=== PATIENT | female | born 1940 | race Caucasian/White ===

== ENCOUNTER → 2017-07-18 | Outpatient (CLI) | payer MEDICARE, OTHER | LOC: LAB.O 09:09 | PROVIDERS: ATTEND Nurse Practitioner Family | DX: E78.2 Mixed hyperlipidemia (principal); E11.9 Type 2 diabetes mellitus without complications; I10 Essential (primary) hypertension ==

== ENCOUNTER 2017-07-21 15:44 | Observation (INO) | payer OTHER ==
--- NOTE | 2017-07-21 16:29 | ED.PDOC ---
History of Present Illness - General Chief Complaint: Respiratory Problem Stated Complaint: difficulty breathing Time Seen by Provider: 07/21/17 16:22 Source: patient Exam Limitations: no limitations - History of Present Illness Initial Comments: Swetha Kaminski 77 y/o female stated that she had 2 episodes of SOB which started yesterday while at sisters house then again today lasted just for a few minutes then goes away..Denies history of asthma,copd,chf.No chest pains or dizziness. Timing/Duration: 24 hours Severity: moderate Activities at Onset: activity Possible Cause: allergen exposure Improving Factors: nothing Worsening Factors: nothing Associated Symptoms: denies symptoms Respiratory Risk Factors: no cause identified Allergies/Adverse Reactions: Allergies NO KNOWN ALLERGY Allergy (Verified 07/21/17 16:40) Home Medications: Ambulatory Orders Donepezil HCl [Aricept] 10 mg PO DAILY 12/12/15 Lisinopril 10 mg PO BEDTIME 12/12/15 Metoprolol Tartrate 25 mg PO DAILY 12/12/15 Pravastatin Sodium [Pravachol] 20 mg PO BEDTIME 12/12/15 metFORMIN HCL [Glucophage] 500 mg PO BID 12/12/15 Hydrochlorothiazide 25 mg PO DAILY 07/21/17 Metoprolol Tartrate 50 mg PO BEDTIME 07/21/17 Review of Systems - Review of Systems Constitutional: States: no symptoms reported EENTM: States: see HPI, nose congestion Respiratory: States: see HPI, short of breath Cardiology: States: no symptoms reported Gastrointestinal/Abdominal: States: no symptoms reported Genitourinary: States: no symptoms reported All other Systems: Reviewed and Negative, No Change from Baseline Past Medical History (General) - Patient Medical History Hx Stroke: No Hx Congestive Heart Failure: No Hx Hypertension: Yes Hx Diabetes: Yes Hx Cancer: Yes - R breast - lumpectomy and node removal with radiation tx Hx MRSA: No Surgical History: cholecystectomy, other - righ mastectomy-2002 - Vaccination History Hx Influenza Vaccination: Yes - 2014 Hx Pneumococcal Vaccination: Yes - 2014 - Social History Hx Tobacco Use: No Hx Chewing Tobacco Use: Yes Hx Alcohol Use: No Hx Substance Use: No Hx Physical Abuse: No Hx Emotional Abuse: No - Activities of Daily Living Patient Lives Alone: No Grooming Ability: Independent Eating (Feeding) Ability: Independent Toileting Ability: Independent Family Medical History - Family History Father Living Status: Cause of : [place] Hx Family Stroke: Yes - mom Hx Family Diabetes: Yes - daughter Hx Family Cancer: Yes - breast -mom();prostate-brother Physical Exam - Physical Exam General Appearance: Alert, Comfortable, No apparent distress Eyes, Ears, Nose, Throat Exam: normal ENT inspection, other - nasal congestion Neck: non-tender, full range of motion, supple Respiratory: chest non-tender, lungs clear, no respiratory distress, wheezing - mild Cardiovascular/Chest: regular rate, rhythm, no gallop, no murmur Peripheral Pulses: radial,right: 2+, radial,left: 2+ Gastrointestinal/Abdominal: normal bowel sounds, non tender, soft, no organomegaly Neurologic: alert, oriented x 3 Skin Exam: normal color, warm/dry Progress - Progress Progress: 07/21/17 17:19 Vital Signs 07/21/17 07/21/17 15:44 15:45 Temperature 97.8 F Pulse Rate [ 96 H Left Radial] Respiratory 20 32 H Rate Blood Pressure 146/69 [Right Arm] O2 Sat by Pulse 99 Oximetry - Results/Orders Results/Orders: Vital Signs - 8 hr 07/21/17 07/21/17 07/21/17 15:44 15:45 16:52 Temperature 97.8 F Pulse Rate [ 96 H 78 Left Radial] Respiratory 20 32 H 20 Rate Blood Pressure 146/69 112/66 [Right Arm] O2 Sat by Pulse 99 96 Oximetry 07/21/17 07/21/17 07/21/17 17:52 18:56 19:24 Temperature Pulse Rate [ 73 75 80 Left Radial] Respiratory 20 22 22 Rate Blood Pressure 155/69 149/72 156/56 [Right Arm] O2 Sat by Pulse 97 99 96 Oximetry 07/21/17 16:45 EKG STAT 07/21/17 18:59 Magnesium Sulfate Premix 2Gm 2 gm Premix Bag 1 bag IVPB ONCE Laboratory Results - last 24 hr 07/21/17 07/21/17 07/21/17 17:00 17:00 17:00 WBC 11.5 H RBC 4.43 Hgb 12.9 Hct 37.2 MCV 84.0 MCH 29.1 MCHC 34.7 RDW 12.5 Plt Count 527 H MPV 6.3 L Absolute Neuts (auto) 8.80 H Absolute Lymphs (auto) 1.80 Absolute Monos (auto) 0.90 H Absolute Eos (auto) 0.00 Absolute Basos (auto) 0.10 Neutrophils % 76.5 Lymphocytes % 15.3 L Monocytes % 7.4 Eosinophils % 0.3 L Basophils % 0.5 PT 11.0 INR 0.970 PTT (SP) 28.5 D-Dimer, Quantitative 2625 H* Sodium 128 L Potassium 2.9 L Chloride 89 L Carbon Dioxide 22 Anion Gap 19.9 H BUN 15 Creatinine 1.12 BUN/Creatinine Ratio 13.4 Random Glucose 270 H Serum Osmolality 267.4 L Calcium 9.3 Magnesium 1.6 L Total Bilirubin 0.5 Direct Bilirubin 0.2 Indirect Bilirubin 0.3 AST 24 ALT 11 Alkaline Phosphatase 67 Creatine Kinase 25 L CK-MB (CK-2) 1.1 CK-MB (CK-2) % Not Reportable Troponin I < 0.02 B-Natriuretic Peptide 34.8 Serum Total Protein 7.5 Albumin 3.6 - EKG/XRAY/CT EKG: Sinus, no ST T wave changes Comments: HR-86 XRAY: chest - no acute abnormalities CT Ordered: Yes - Chest cta-no pe ;left hilar tumor Departure - Departure Clinical Impression: Hypokalemia due to loss of potassium, Hyponatremia, Hypomagnesemia, Neoplasm of hilus of left lung, History of cancer of right breast Diabetes Qualifiers: Diabetes mellitus type: type 2 Diabetes mellitus complication status: without complication Diabetes mellitus snf insulin use: without snf use Qualified Code(s): E11.9 - Type 2 diabetes mellitus without complications Dyspnea Qualifiers: Dyspnea type: unspecified Qualified Code(s): R06.00 - Dyspnea, unspecified Time of Disposition: 19:48 - D/W Trina Ren -ANP/Hospitalist Disposition: Admit Patient Condition: Fair Departure Forms: Patient Portal Self Enrollment Referrals: Bekah Sears NP [Primary Care Provider] - 1-2 Weeks Home Medications: Ambulatory Orders Donepezil HCl [Aricept] 10 mg PO DAILY 12/12/15 Lisinopril 10 mg PO BEDTIME 12/12/15 Metoprolol Tartrate 25 mg PO DAILY 12/12/15 Pravastatin Sodium [Pravachol] 20 mg PO BEDTIME 12/12/15 metFORMIN HCL [Glucophage] 500 mg PO BID 12/12/15 Hydrochlorothiazide 25 mg PO DAILY 07/21/17 Metoprolol Tartrate 50 mg PO BEDTIME 07/21/17 Decision To Admit - Decistion To Admit Decision to Admit Reason: Admit from ER Decision to Admit Date: 07/21/17 Decision to Admit Time: 19:48
--- NOTE | 2017-07-21 16:54 | RAD ---
EXAM DESCRIPTION: Chest,1 View CLINICAL HISTORY: sob COMPARISON: March TECHNIQUE: AP portable chest FINDINGS: Surgical clips are seen in the right axilla. The lungs are free of acute infiltrate. The heart is within range of normal. IMPRESSION: Unremarkable chest. Electronically signed by: Jayce Kenny MD 07/21/2017 4:53 PM CDT
[2017-07-21] MEDS ORDERED: LACTATED RINGERS 1,000 ML IVS ONE (17:53)
[2017-07-21] MEDS ORDERED: POTASSIUM CHLORIDE 20 MEQ TAB PO ONE ×2 (18:59→23:41)
[2017-07-21] MEDS ORDERED: MAGNESIUM SULFATE PREMIX 2GM 2 GM in PREMIX BAG 1 BAG IVPB ONE (18:59)
[2017-07-21] MEDS ORDERED: MAGNESIUM SULFATE PREMIX 2GM 50 ML IVPB ONE (19:15)
--- NOTE | 2017-07-21 19:25 | CT ---
EXAM: CTA Chest CLINICAL INDICATION: 77-year-old female with shortness of breath and elevated d-dimer. COMPARISON: None. EXAMINATION: CT angiography of the pulmonary arteries was performed following intravenous administration of contrast. Coronal and bilateral oblique maximum intensity projections (MIPS) were created. This exam was performed according to our departmental dose optimization program which includes use of automated exposure control, adjustment of the mA and/or kV according to patient size and/or use of iterative reconstruction technique. FINDINGS: Chest: Evaluation through the lungs reveals no focal opacity, pleural effusion or pneumothorax. Soft tissue attenuating mass is identified present at the level of the LEFT hilar region concerning for neoplasm measuring 19 x 15 mm, (series 2, image 46). There is minimal dependent basilar atelectasis and scarring. The tracheobronchial airways are patent. No significant mediastinal or axillary lymphadenopathy by CT measurement criteria. Small hiatal hernia. Top normal heart size. No pericardial effusion. Prominent mediastinal epicardial fat. RIGHT axillary surgical clips. Incidentally noted hypoattenuating lesion within the LEFT lobe thyroid gland measuring 16 mm. Best practice guidelines recommend follow-up sonography if not recently performed. Limited evaluation of the upper abdomen shows no acute intra-abdominal abnormalities. Large hypoattenuating circumscribed structure at the level of the RIGHT adrenal glands with Hounsfield units measuring less than 10 suggestive of an adrenal adenoma measuring 34 mm. Large cystic type lesion present within the LEFT lobe liver measuring up to 9.7 cm with hypoattenuating contents suggestive of a cyst. Few additional smaller cystic type lesions are noted. Please correlate with patient clinical history. The osseous structures are within normal limits. CT angiography: Diagnostic CT angiography of the pulmonary arteries without intraluminal filling defect noted to suggest pulmonary arterial embolus. IMPRESSION: 1. Diagnostic pulmonary angiography without findings to suggest pulmonary arterial embolus. 2. LEFT hilar mass as detailed above. 2017 Fleischner Society Recommendations for Single Solid Lung Nodule Follow-Up based on size (average of long- and short-axis diameters): >8 mm Low-Risk Patient: Consider CT, PET/CT or tissue sampling at 3 months >8 mm High-Risk Patient: Same as for low-risk patient 3. No specific findings are noted to suggest etiology of the patient's chest pain and shortness of breath. 4. Cystic type lesions within the LEFT lobe liver. Please correlate with patient clinical history. As clinically warranted, further evaluation 5. Incidentally noted hypoattenuating lesion within the LEFT lobe thyroid gland measuring 16 mm. Best practice guidelines recommend follow-up sonography if not recently performed. Electronically signed by: Kaitlin Vasquez MD 07/21/2017 7:23 PM CDT
--- NOTE | 2017-07-21 20:54 | HP ---
SUPERVISING PHYSICIAN: Solitario Selby MD CHIEF COMPLAINT: Shortness of breath. HISTORY OF PRESENT ILLNESS: This is a 77 year-old female patient who had a new onset of shortness of breath that started yesterday. She could not get her breath. She felt clammy and shaky. It resolved somewhat yesterday but then again today, she had another episode and she came to the Emergency Room. Her temperature was 97.8, heart rate 96, blood pressure 146/69, respiratory rate 20 , it did get as high as 32 but her 02 saturation was 95%. Laboratory in the Emergency Room showed a white count of 11.5 with hemoglobin of 12.9, hematocrit 37.2, platelet count elevated at 527,000. Chemistries showed a sodium of 128 with a potassium of 2.9, chloride 89, BUN 15, creatinine 1.12 with glucose of 270. Serum osmolality was 267.4, magnesium 1.6 and creatinine kinase 25. D-dimer 2,625. CT of the chest showed no evidence for pulmonary artery embolus but there was a left hilar mass that was 19 mm x 15 mm. It also showed a lesion on the left lobe of the thyroid as well as a right adrenal adenoma that was 34 mm and a left cystic type lesion on the liver that was 9.7 cm plus a few additional smaller cystic type lesions noted. She was given some normal saline in the Emergency Room as well as some oral potassium and some magnesium. I was called for hospital admission. PAST MEDICAL HISTORY: 1. Diabetes mellitus type 2. 2 Hypertension. 3. Acid reflux. 4. Heart problems as seen in the past by Dr. Nuno. 5. Right breast cancer in 2002. PAST SURGICAL HISTORY: 1. Cholecystectomy. 2. Right breast lumpectomy as well as lymph node resection in 2002. CURRENT MEDICATIONS: Per the EMR and awaiting verification. ALLERGIES: NO KNOWN DRUG ALLERGIES. FAMILY HISTORY: Positive for heart problems, myocardial infarctions, stroke and cancer. SOCIAL HISTORY: She smoked when she was a teenager but she has been subjected to heavy secondhand smoke her entire life. She does dip snuff approximately one -half can per day. She denies any ETOH or illicit drug use. REVIEW OF SYSTEMS: GENERAL: Negative for fever, fatigue or weight loss. HEENT: Positive for nose congestion and some mild sinus symptoms. Negative for vision changes or ear pain. CHEST: As per history of present illness. HEART: Negative for chest pain, tachycardia or palpitations. ABDOMEN: Negative for nausea, vomiting, diarrhea or constipation. GENITOURINARY: Negative for hematuria, dysuria, polyuria. ENDOCRINE: Positive for excessive thirst that started about 4 or 5 months ago. She drinks approximately 4 liters per day. NEUROLOGIC: Denies dizziness, headache or seizures. PHYSICAL EXAMINATION: VITAL SIGNS: Temperature 98.3, pulse rate 75, blood pressure 150/81, respiratory rate 18, 02 saturation 97% on room air. GENERAL: This is a 77 year-old female patient who is lying in her hospital bed. She is in no acute distress. HEENT: Normocephalic and atraumatic. Pupils are equal and reactive. Oropharynx is clear. NECK: Supple without mass. There is no jugular venous distention. CHEST: Essentially clear to auscultation bilaterally. There is equal rise and fall of the chest with inspiration and expiration. CARDIOVASCULAR: Regular rate and rhythm. ABDOMEN: Soft, it is rounded, non-tender. Bowel sounds are positive. EXTREMITIES: There is a trace of pedal edema bilaterally, otherwise no cyanosis or clubbing. NEUROLOGIC: She is awake, alert, and oriented x3. Laboratory and films are as per the history of present illness. ASSESSMENT: 1. Exacerbation of chronic obstructive pulmonary disease in a patient that has been exposed to secondhand smoke most of her life. 2. Hyponatremia secondary to excessive thirst and water toxicity with concerns for developing SIADH. 3. Hypokalemia. 4. Hypomagnesemia. 5. Left hilar lung mass per CT measuring 19 mm x 15 mm. 6. A lesion on the left lobe of her thyroid. 7. Adrenal adenoma measuring 34 mm. 8. Left cystic type lesion of the liver 9.7 cm with a few scattered cysts also noted. 9. Chronic tobacco abuse in a patient that uses snuff daily. 10. Gastroesophageal reflux disease. PLAN: We will place the patient in observation. She received some magnesium and some oral potassium in the Emergency Room. I will recheck her electrolytes in a few minutes and replace overnight if needed and we will recheck in the morning. She is also on strict fluid restrictions. I have also started Accu- Cheks with sliding scale insulin. I will draw a hemoglobin A1C, giving her breathing treatments and one small dose of steroids. I will hold off until in the morning for any kind of antibiotics. She will have to have close followup with her primary care physician, Clara Sears, for further testing. Otherwise , we will continue to monitor closely and follow as needed. Dr. Selby is the collaborating physician and available for consultation. #[id number] [facility]
[2017-07-21] MEDS ORDERED: SODIUM CHLORIDE 0.9% (FLUSH) 10 ML SYG IV PRN (22:15)
[2017-07-21] MEDS ORDERED: LEVALBUTEROL NEBS 1.25 MG/3 ML VIAL NEB PRN (22:15)
[2017-07-21] MEDS ORDERED: DEXTROSE 50% 25 GM/50 ML SYG IV PRN (22:19)
[2017-07-21] MEDS ORDERED: GLUCAGON INJ 1 MG VIAL SUBCU PRN (22:19)
[2017-07-21] MEDS ORDERED: PANTOPRAZOLE SODIUM IV 40 MG VIAL IV SCH (22:30)
[2017-07-21] MEDS ORDERED: IV SET AND CAP CHANGE INJ INJ SCH (22:30)
[2017-07-21] MEDS ORDERED: methylPREDNISolone SODIUM SUC 125 MG/2 ML VIAL IV ONE (22:35)
[2017-07-21] MEDS ORDERED: KCL 20MEQ/WATER FOR INJ 100ML 20 MEQ in PREMIX BAG 1 BAG IVPB ONE (23:48)
[2017-07-21] MEDS ORDERED: KCL 20MEQ/WATER FOR INJ 100ML 100 ML IVPB ONE (23:52)
[2017-07-21] MEDS ORDERED: SODIUM CHLORIDE 0.9% 500ML 500 ML ONE (23:53)
[2017-07-21] MEDS ORDERED: POTASSIUM CHLORIDE 20 MEQ TAB ONE (23:53)
[2017-07-21] MEDS ORDERED: SODIUM CHLORIDE 0.9% 500ML 500 ML IVS ONE (23:55)
[2017-07-22] MEDS: IPRATROPIUM BROMIDE NEBS 0.5 MG/2.5 ML VIAL NEB SCH ×3 (07:14→16:23)
[2017-07-22] MEDS ORDERED: INSULIN, REG.(HUMAN) 100 U/ML VIAL ONE (07:43)
[2017-07-22] MEDS: INSULIN LISPRO 100 UNITS/ML PEN SUBCU SCH ×4 (07:48→21:32)
[2017-07-22] MEDS: METOPROLOL TARTRATE 50 MG TAB PO SCH (10:03)
[2017-07-22] MEDS: hydroCHLOROthiazide 25 MG TAB PO SCH (10:04)
[2017-07-22] MEDS: DONEPEZIL HCL 5 MG TAB PO SCH (10:05)
[2017-07-22] MEDS: SODIUM CHLORIDE 0.9% (FLUSH) 10 ML SYG IV SCH ×2 (10:05→20:18)
[2017-07-22] MEDS ORDERED: ALPRAZolam 0.25 MG TAB PO PRN (10:08)
[2017-07-22] MEDS ORDERED: ACETAMINOPHEN 500 MG TAB PO PRN (11:31)
[2017-07-22] MEDS ORDERED: ALPRAZolam 0.25 MG TAB PO ONE (11:31)
--- NOTE | 2017-07-22 14:05 | PN ---
DATE: 07/22/17 SUPERVISING PHYSICIAN: Solitario Selby M.D. SUBJECTIVE: The patient is sitting up in her bed. Her family is at the bedside. She is very tearful. Has no complaints of shortness of breath, nausea , vomiting or diarrhea. She does complain of thirst but she feels like she is doing her fluid restrictions okay, but she is very anxious and worried about her prognosis. OBJECTIVE: VITAL SIGNS: She is afebrile, heart rate 62, blood pressure 132/76, respiratory rate 18, O2 sat is 97% on room air. RESPIRATORY: Essentially clear to auscultation bilaterally. CARDIAC: Regular rate and rhythm. GASTROINTESTINAL: Abdomen is rounded. It is soft, nondistended. Bowel sounds are positive. EXTREMITIES: Trace of pedal edema bilaterally, otherwise no cyanosis or clubbing. NEUROLOGIC: She is awake, alert and oriented times three. LABORATORY: WBCs have normalized to 8.9 with hemoglobin 12.3 and hematocrit 35.7, platelets have improved to 503, neutrophils 92.3. Sodium has improved to 131 with chloride 99. Blood sugars have run between 253 and 385. Magnesium 2.2. Urinalysis is within normal limits. All other labs and films have been reviewed via the EMR. ASSESSMENT: 1. Exacerbation of chronic obstructive pulmonary disease in a patient that has been exposed to secondhand smoke most of her life. 2. Hyponatremia that has improved secondary to excessive thirst and water toxicity with concerns for developing SIADH. 3. Hypokalemia now within normal limits. 4. Hypomagnesemia, improved, now within normal limits. 5. Left hilar lung mass per CT measuring 19 mm x 15 mm. 6. A lesion on the left lobe of her thyroid. 7. Adrenal adenoma measuring 34 mm. 8. Left cystic type lesion of the liver 9.7 cm with a few scattered cysts also noted. 9. Chronic tobacco abuse in a patient that uses snuff daily. 10. Gastroesophageal reflux disease. PLAN: We will continue present supportive care, including her fluid restrictions. I have given her some Xanax due to her anxiety. Her Metformin has been held and will need to be held until Monday morning due to the radiological values in her CTA. Her blood sugars have been elevated, so I will start her on 10 units of Levemir tonight. Her home medications have been restarted. We will monitor her lab closely. Otherwise we will plan for discharge tomorrow and we will follow the patient as needed. Dr. Selby is the collaborating physician available for consultation. #[id number] [facility]
[2017-07-22] MEDS: PANTOPRAZOLE SODIUM IV 40 MG VIAL IV SCH ×2 (20:17→20:53)
[2017-07-22] MEDS ORDERED: LISINOPRIL 10 MG TAB PO SCH (21:00)
[2017-07-22] MEDS ORDERED: INSULIN DETEMIR 100 UNITS/ML PEN SUBCU SCH (21:00)
[2017-07-22] MEDS ORDERED: PRAVASTATIN SODIUM 20 MG TAB PO SCH (21:00)
[2017-07-22] MEDS ORDERED: METOPROLOL TARTRATE 50 MG TAB PO SCH (21:00)
[2017-07-23] MEDS ORDERED: PANTOPRAZOLE SODIUM TAB 40 MG PO SCH (06:30)
[2017-07-23 06:34] VITALS: TEMP 98.1
[2017-07-23] MEDS: INSULIN LISPRO 100 UNITS/ML PEN SUBCU SCH (07:37)
[2017-07-23] MEDS: DONEPEZIL HCL 5 MG TAB PO SCH (08:00)
[2017-07-23] MEDS: hydroCHLOROthiazide 25 MG TAB PO SCH (08:00)
[2017-07-23] MEDS: METOPROLOL TARTRATE 50 MG TAB PO SCH (08:01)
[2017-07-23] MEDS: SODIUM CHLORIDE 0.9% (FLUSH) 10 ML SYG IV SCH (08:04)
[2017-07-23] MEDS ORDERED: ALBUTEROL INHALER 64 PUFF/8GM INH SCH ×2 (09:30→21:00)
[2017-07-23] MEDS ORDERED: CITALOPRAM HBR 20 MG TAB PO ONE (09:41)
[2017-07-23 10:16] VITALS: O2SAT 95
[2017-07-23 11:50] VITALS: BP 118/76
--- NOTE | 2017-07-24 08:08 | DS ---
SUPERVISING PHYSICIAN: Solitario Selby MD DISCHARGE DIAGNOSIS: 1. Exacerbation of chronic obstructive pulmonary disease in a patient that has been exposed to secondhand smoke most of her life. 2. Hyponatremia that has improved secondary to excessive thirst and water toxicity with concerns for developing SIADH. 3. Hypokalemia, now within normal limits. 4. Hypomagnesemia, now within normal limits. 5. Left hilar lung mass per CT measuring 19 mm x 15 mm. 6. A lesion on the left lobe of her thyroid. 7. Adrenal adenoma measuring 34 mm. 8. Left cystic type lesion of the liver 9.7 cm with a few scattered cysts also noted. 9. Chronic tobacco abuse in a patient that uses snuff daily. 10. Gastroesophageal reflux disease. HISTORY OF PRESENT ILLNESS: This is a 77-year-old female patient who had a new onset of shortness of breath that started the day prior to her admission. She had a very difficult time getting her breath. She also felt clammy and shaky. It resolved the day prior to admission, but on the day of admission she had another episode and she came to the Emergency Room. Her vital signs were basically within normal limits, but her respiratory rate did get as high as 32. Laboratory in the Emergency Room showed a white count of 11.5 with hemoglobin of 12.9, hematocrit 37.2, platelet count elevated at 527,000. Chemistries showed a sodium of 128 with a potassium of 2.9, chloride 89, BUN 15, creatinine 1.12 with glucose of 270. Magnesium 1.6 and creatinine kinase 25. D-dimer 2, 625. CTA of the chest showed no evidence for pulmonary artery embolus but there was a left hilar mass that was 19 mm x 15 mm. It also showed a lesion on the left lobe of the thyroid as well as a right adrenal adenoma that was 34 mm and a left cystic type lesion on the liver that was 9.7 cm plus a few additional smaller cystic type lesions noted. She was given some normal saline in the Emergency Room as well as some oral potassium and some IV magnesium. I was called for hospital admission. HOSPITAL COURSE: The patient was placed in observation and put on fluid restrictions. Her shortness of breath improved with breathing treatments and one dose of IV steroids. She did have several episodes of anxiety and was given Xanax with improved symptoms. She was started on Celexa 10 mg daily for anxiety. Her magnesium and potassium were replaced. Her sodium trended up to 136 today with potassium 3.6 today. Her magnesium is 1.8. Urinalysis was basically within normal limits. It was found that her blood sugars were quite elevated in the 300s and hemoglobin A1c was 11.2. Her metformin was held due to the CTA and she was put on 10 units of Levemir at night. Blood sugar this morning was 159. Vital signs have remained stable. She will be discharged home in good condition. DISCHARGE PLAN: The patient will be discharged home in stable condition. She has been given a disc from Radiology that she is to take to Bekah Sears on followup appointment. She is to call Bekah Sears's office this week at [facility] to get a followup appointment within the next week. She will go home with [facility]. Her CMP, CBC and magnesium should be drawn on the day prior to her appointment with Bekah Sears. She will also continue on fluid restrictions of 1200 mL in a 24 hour period, plus she can have a morning cup of coffee. I have also sent her home on a prescription of Xanax as well as Celexa. She will be given her ProAir inhaler for shortness of breath, coughing or wheezing. I have also given her a Glucometer to check her fasting AM blood sugars and she is to record those results and give to Bekah Sears at her appointment. She will need close followup with social work lecturer/ oncologist given the results of her CT exam. The patient would like to have a social work lecturer/oncologist that comes to [place], such as Dr. Kowalski or Dr. Mohan. She is to return to the hospital or call Bekah Sears at [facility] for any problems or complications. DISCHARGE MEDICATIONS: 1. Pravastatin. 2. Aricept. 3. Metformin. 4. Metoprolol tartrate. 5. Lisinopril. 6. Hydrochlorothiazide. 7. ProAir inhaler. 8. Xanax. 9. Citalopram. 10. Levemir insulin 10 units subcutaneously at night. Dr. Selby is the collaborating physician and available for consultation. #[id number] [facility]
== END 2017-07-23 11:10 | disposition home health service (06) ==
LOC: ER 15:44 → MS 20:52
PROVIDERS: ADMIT Nurse Practitioner Acute Care; ATTEND Nurse Practitioner Acute Care
DX: J44.1 Chronic obstructive pulmonary disease with (acute) exacerbation (principal); E87.1 Hypo-osmolality and hyponatremia; E87.6 Hypokalemia; E83.42 Hypomagnesemia; R91.8 Other nonspecific abnormal finding of lung field; E07.9 Disorder of thyroid, unspecified; D35.01 Benign neoplasm of right adrenal gland; K76.89 Other specified diseases of liver; F17.290 Nicotine dependence, other tobacco product, uncomplicated; K21.9 Gastro-esophageal reflux disease without esophagitis; E11.9 Type 2 diabetes mellitus without complications; I10 Essential (primary) hypertension; Z79.4 Long term (current) use of insulin; Z79.899 Other long term (current) drug therapy; Z85.3 Personal history of malignant neoplasm of breast
CPT/HCPCS: 36415 ×5; 36416 ×5; 71045; 71275; 80048 ×3; 80053; 80076; 81001; 82550; 82553; 82948 ×5; 83036; 83735 ×3; 83880; 84484; 85025 ×3; 85379; 85610; 85730; 93005; 94640; 94664; 94760 ×8; 96361; 96365; 96372 ×2; 96375; 99284; G0378; J1815 ×2; J2930; J3475; J3480; J7040; J7120; J7644

== ENCOUNTER → 2017-07-27 | Outpatient (CLI) | payer OTHER ==
--- NOTE | 2017-07-27 12:32 | US ---
EXAM DESCRIPTION: Soft Tissue,Head/Neck: ULTRASOUND. CLINICAL HISTORY: R22.1. Recent IV access in the right lateral neck. Patient complains of swelling and increasing tenderness. COMPARISON: None Available. TECHNIQUE: Transcutaneous scanning: Two-dimensional and Doppler modes. 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 This is palpable on the skin. No color flow or venous waveforms. The vein is not compressible. Venous flow where this vein joins the right internal jugular vein. Doppler arterial flow in the right internal carotid and normal venous flow and the right internal jugular vein.. No soft tissue mass, discrete cyst. No abnormal Doppler vascularity. 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 No thrombosis in the right internal jugular vein. No hematoma. CRITICAL COMMUNICATION: The critical value was discussed directly by phone with TONYA Sauceda, at approximately 1220, on 07/27/2017. Electronically signed by: Francisco Javier Do MD 07/27/2017 12:30 PM CDT
== END ==
LOC: US 11:25
PROVIDERS: ATTEND Nurse Practitioner Family
DX: R22.1 Localized swelling, mass and lump, neck (principal)

== ENCOUNTER → 2018-04-06 | Outpatient (CLI) | payer OTHER | LOC: LAB.O 09:23 | PROVIDERS: ATTEND Nurse Practitioner Family | DX: E11.9 Type 2 diabetes mellitus without complications (principal); I10 Essential (primary) hypertension; E78.2 Mixed hyperlipidemia ==

== ENCOUNTER 2018-05-01 20:07 | Emergency (ER) | payer OTHER ==
[2018-05-01 20:27] VITALS: O2SAT 99
--- NOTE | 2018-05-01 20:50 | ED.PDOC ---
History of Present Illness - General Chief Complaint: Back Pain or Injury Stated Complaint: left side muscle spasms Time Seen by Provider: 05/01/18 20:48 Source: patient Exam Limitations: no limitations - History of Present Illness Initial Comments: Swetha Kaminski 78 y/o female stated that she had sharp left sided mid back pain which had been constant since this afternoon.No hematuria,no N/V/D,regular BM,no blood in urine. Timing/Duration: 7-24 hours Quality/Severity: sharpness Back Pain Location: lumbar spine Back Pain Radiation: other - NONE Method of Injury/Prior Injury: other - NONE Improving Factors: rest Worsening Factors: movement Associated Symptoms: muscle spasms Allergies/Adverse Reactions: Allergies NO KNOWN ALLERGY Allergy (Verified 07/21/17 16:40) Home Medications: Ambulatory Orders Donepezil HCl [Aricept] 10 mg PO DAILY 12/12/15 Lisinopril 10 mg PO BEDTIME 12/12/15 Metoprolol Tartrate 25 mg PO DAILY 12/12/15 Pravastatin Sodium [Pravachol] 20 mg PO BEDTIME 12/12/15 metFORMIN HCL [Glucophage] 500 mg PO BID 12/12/15 Hydrochlorothiazide 25 mg PO DAILY 07/21/17 Metoprolol Tartrate 50 mg PO BEDTIME 07/21/17 ALPRAZolam [Xanax] 0.25 mg PO Q6H PRN #30 tab 07/23/17 Albuterol Inhaler [Ventolin Hfa Inhaler] 2 puff INH BID inh 07/23/17 Citalopram Hydrobromide [Celexa] 10 mg PO DAILY #30 tab 07/23/17 Acetaminophen W/ Codeine [Tylenol W/ CODEINE #3] 1 ea PO Q6HRS PRN #14 05/01/18 Baclofen 20 mg PO BID #14 tab 05/01/18 Insulin Detemir [Levemir Pen] 18 units SUBCU BEDTIME 05/01/18 Nitrofurantoin Monohydrate Mac [Macrobid] 100 mg PO BID 5 Days #10 capsule 05/01/18 Potassium Chloride [Micro-K] 10 meq PO DAILY 05/01/18 Review of Systems - Review of Systems Constitutional: States: no symptoms reported EENTM: States: no symptoms reported Cardiology: States: no symptoms reported Gastrointestinal/Abdominal: States: no symptoms reported Genitourinary: States: no symptoms reported Musculoskeletal: States: see HPI Skin: States: no symptoms reported Neurological: States: no symptoms reported Past Medical History (General) - Patient Medical History Hx Seizures: No Hx Stroke: No Hx Dementia: Yes Hx Asthma: No Hx of COPD: Yes Hx Congestive Heart Failure: Yes Hx Pacemaker: No Hx Hypertension: Yes Hx Diabetes: Yes Hx Cancer: Yes - rt breast w/ biopsy Hx MRSA: No Surgical History: cholecystectomy, other - lumpectomy with LN dissection - Vaccination History Hx Influenza Vaccination: Yes Hx Pneumococcal Vaccination: Yes - 2015 - Social History Hx Tobacco Use: No Hx Chewing Tobacco Use: Yes Hx Alcohol Use: No Hx Substance Use: No Hx Physical Abuse: No Hx Emotional Abuse: No - Triage Comment ED Triage Comment: Describes spasms to across back since this afternoon. States been active all day Family Medical History - Family History Father Living Status: Age at (years of age): 77 Cause of : OR Hx Family Asthma: Yes Hx Family Congestive Heart Failure: No Hx Family Hypertension: No Hx Family Stroke: No - mom Hx Cardiac Disease: Yes Hx Family Diabetes: Yes - daughter Hx Family Cancer: Yes - breast -mom();prostate-brother;dad-kidney Mother Living Status: Age at (years of age): 89 Hx Family Asthma: No Hx Family Congestive Heart Failure: Yes Hx Family Hypertension: Yes Hx Family Stroke: Yes Hx Cardiac Disease: Yes Hx Family Diabetes: No Hx Family Cancer: Yes Physical Exam - Physical Exam General Appearance: Alert, Comfortable, No apparent distress Eyes, Ears, Nose, Throat Exam: normal ENT inspection Neck Exam: non-tender, full range of motion, normal alignment, normal inspection Cardiovascular/Respiratory: regular rate, rhythm, no M/R/G, normal peripheral pulses Peripheral Pulses: radial,right: 2+, radial,left: 2+ Gastrointestinal/Abdominal: normal bowel sounds, non tender, soft Back Exam: no vertebral tenderness, CVA tenderness (L) Extremity Exam: normal range of motion, non-tender, no pedal edema Neurologic: no motor/sensory deficits, alert, oriented x 3, other - DTR-2 + bilaterally patellar reflex;SLR test negative bilaterally Progress - Progress Progress: 05/01/18 20:55 Vital Signs - 8 hr 05/01/18 20:24 Temperature 96.8 F L Pulse Rate [ 60 Right] Respiratory 18 Rate Blood Pressure 180/61 [Left Arm] O2 Sat by Pulse 99 Oximetry - Results/Orders Results/Orders: 05/01/18 20:31 URINE CULTURE W/COLONY COUNT Stat 05/01/18 20:50 IV Care:Saline Lock per Protoc QSHIFT 05/01/18 21:12 URINALYSIS Stat Laboratory Results - last 24 hr 05/01/18 05/01/18 20:31 20:50 WBC 10.4 RBC 4.21 Hgb 12.3 Hct 36.9 MCV 87.5 MCH 29.3 MCHC 33.5 RDW 13.3 Plt Count 385 MPV 6.6 L Absolute Neuts (auto) 7.60 H Absolute Lymphs (auto) 1.90 Absolute Monos (auto) 0.80 Absolute Eos (auto) 0.10 Absolute Basos (auto) 0.10 Neutrophils % 72.7 Lymphocytes % 17.9 L Monocytes % 7.9 Eosinophils % 0.6 L Basophils % 0.9 PT 9.8 INR 0.98 PTT (SP) 24.0 Sodium 134 L Potassium 4.1 Chloride 96 L Carbon Dioxide 27 Anion Gap 15.1 BUN 23 H Creatinine 1.03 BUN/Creatinine Ratio 22.3 H Random Glucose 145 H Serum Osmolality 274.5 L Calcium 10.0 Magnesium 2.1 Total Bilirubin 0.6 Direct Bilirubin 0.3 H Indirect Bilirubin 0.3 AST 23 ALT 10 Alkaline Phosphatase 55 Creatine Kinase 120 CK-MB (CK-2) 2.8 CK-MB (CK-2) % Not Reportable Troponin I < 0.02 Serum Total Protein 7.2 Albumin 3.9 Urine Color Yellow Urine Appearance Sl cloudy Urine pH 7.5 Ur Specific [place] 1.020 Urine Protein Negative Urine Glucose (UA) Negative Urine Ketones Negative Urine Blood Negative Urine Nitrite Negative Urine Bilirubin Negative Urine Urobilinogen 0.2 Ur Leukocyte Esterase Moderate H Urine RBC 1-3 Urine WBC 5-10 H Ur Epithelial Cells 5-10 Amorphous Sediment 2+ Urine Bacteria 1+ - EKG/XRAY/CT CT Ordered: Yes - abd/p-no acute abdominal findings Departure - Departure Clinical Impression: Acute abdominal pain in left flank Urinary tract infection Qualifiers: Urinary tract infection type: site unspecified Hematuria presence: without hematuria Qualified Code(s): N39.0 - Urinary tract infection, site not specified Time of Disposition: 22:18 Disposition: Discharge to Home or Self Care Condition: Fair Departure Forms: ED Discharge - Pt. Copy, Patient Portal Self Enrollment Instructions: DI for Low Back Pain Referrals: Bekah Sears NP [Primary Care Provider] - 1-2 Weeks Prescriptions: Acetaminophen W/ Codeine [Tylenol W/ CODEINE #3] 1 ea PO Q6HRS PRN #14 PRN Reason: Pain Baclofen 20 mg PO BID #14 tab Nitrofurantoin Monohydrate Mac [Macrobid] 100 mg PO BID 5 Days #10 capsule Home Medications: Ambulatory Orders Donepezil HCl [Aricept] 10 mg PO DAILY 12/12/15 Lisinopril 10 mg PO BEDTIME 12/12/15 Metoprolol Tartrate 25 mg PO DAILY 12/12/15 Pravastatin Sodium [Pravachol] 20 mg PO BEDTIME 12/12/15 metFORMIN HCL [Glucophage] 500 mg PO BID 12/12/15 Hydrochlorothiazide 25 mg PO DAILY 07/21/17 Metoprolol Tartrate 50 mg PO BEDTIME 07/21/17 ALPRAZolam [Xanax] 0.25 mg PO Q6H PRN #30 tab 07/23/17 Albuterol Inhaler [Ventolin Hfa Inhaler] 2 puff INH BID inh 07/23/17 Citalopram Hydrobromide [Celexa] 10 mg PO DAILY #30 tab 07/23/17 Acetaminophen W/ Codeine [Tylenol W/ CODEINE #3] 1 ea PO Q6HRS PRN #14 05/01/18 Baclofen 20 mg PO BID #14 tab 05/01/18 Insulin Detemir [Levemir Pen] 18 units SUBCU BEDTIME 05/01/18 Nitrofurantoin Monohydrate Mac [Macrobid] 100 mg PO BID 5 Days #10 capsule 05/01/18 Potassium Chloride [Micro-K] 10 meq PO DAILY 05/01/18 Additional Instructions: Follow up with your primary Md 02 May 2018 for recheck as needed;return to ER as needed
--- NOTE | 2018-05-01 21:47 | CT ---
EXAM DESCRIPTION: Abdoment/Pelvis w/o Contrast CLINICAL HISTORY: 78 years Female, left flank pain Comparison: Correlation with CT pelvis 01/29/2016 TECHNIQUE: Contiguous axial images of the abdomen and pelvis were obtained without IV or oral contrast followed by reconstruction images. This exam was performed according to our departmental dose-optimization program, which includes automated exposure control, adjustment of the mA and/or kV according to patient size and/or use of iterative reconstruction technique. FINDINGS: Lung bases: Lung bases are clear. Liver: Two cystic attenuation hepatic lesions, likely representing simple cysts largest in the left hepatic lobe measuring 6.5 cm. Additional hypoattenuation adjacent to the falciform ligament, too small to characterize but possibly representing additional cyst. Multiple surgical clips are seen in the right inferior perihepatic region. Gallbladder/Bile ducts: Gallbladder not identified. Mildly prominent extrahepatic bile duct measuring up to 1.1 cm, likely related to absent gallbladder. Spleen: Within normal limits Pancreas: Incompletely characterized 1.9 cm hypodense lesion in the pancreatic body (series 2 image 40) Adrenal glands: Right adrenal gland nodule measuring 2.5 cm with attenuation values consistent with a lipid rich adenoma. Kidneys/Bladder: No renal stone. No hydronephrosis. No perinephric stranding. Contracted bladder is poorly evaluated. GI tract: Oval density in the stomach measuring 1.4 cm, likely representing recently ingested material. No bowel obstruction. Scattered descending colon/sigmoid colon diverticula without adjacent findings to suggest active inflammatory process. The appendix is within normal limits. Uterus/adnexa: Retroverted uterus. No suspicious adnexal lesion. Vascular structures: Not well evaluated in this unenhanced study. Nonaneurysmal abdominal aorta. Diffuse aortic vascular calcifications. Free fluid: No free fluid. Lymph nodes: No radiographically enlarged lymph nodes Soft tissues: Small fat-containing umbilical hernia. Bones: No acute osseous finding. Mild thoracolumbar spine degenerative changes. IMPRESSION: 1. No acute abdominal or pelvic finding in this unenhanced study. 2. Colonic diverticulosis 3.Incidental and incompletely characterize hypodense pancreatic lesion (1.9 cm). Additional imaging with pancreatic protocol CT or MRI can be pursued as clinically warranted. 4. Hepatic cysts 5. Right adrenal lipid rich adenoma (2.5 cm) Electronically signed by: Delaney Rivas MD 05/01/2018 9:45 PM [employer] ROLLER
[2018-05-01] MEDS ORDERED: HYDROcodone 7.5MG/APAP 325MG 1 EA TAB PO ONE (22:19)
[2018-05-01] MEDS ORDERED: KETOROLAC TROMETHAMINE INJ 30 MG/ML VIAL IM ONE (22:19)
[2018-05-01] MEDS ORDERED: HYDROCOD/APAP 7.5/325 (ER DISP) #3 TAB PO ONE (22:19)
[2018-05-01] MEDS ORDERED: ORPHENADRINE CITRATE 30 MG/ML AMP IM ONE (22:19)
[2018-05-01] MEDS ORDERED: NITROFURANTOIN MONOHYDRATE MAC 100 MG CAP PO ONE (22:21)
[2018-05-01 22:58] VITALS: BP 163/64; TEMP 97.2
== END 2018-05-01 22:57 | disposition home or self-care (01) ==
LOC: ER 20:07
DX: N39.0 Urinary tract infection, site not specified (principal); R10.9 Unspecified abdominal pain; M54.5 Low back pain; F03.90 Unspecified dementia, unspecified severity, without behavioral disturbance, psychotic disturbance, mood disturbance, and anxiety; J44.9 Chronic obstructive pulmonary disease, unspecified; I11.0 Hypertensive heart disease with heart failure; I50.9 Heart failure, unspecified; E11.9 Type 2 diabetes mellitus without complications; Z85.3 Personal history of malignant neoplasm of breast; Z90.49 Acquired absence of other specified parts of digestive tract; Z79.4 Long term (current) use of insulin; Z79.899 Other long term (current) drug therapy; Z87.891 Personal history of nicotine dependence
CPT/HCPCS: 74176; 80048; 80076; 81001; 82550; 82553; 84484; 85025; 85610; 85730; 87086; J1885; J2360

== ENCOUNTER → 2018-05-24 | Outpatient (CLI) | payer OTHER | LOC: YCFC.O 09:15 | PROVIDERS: ATTEND Nurse Practitioner Family | DX: E87.6 Hypokalemia (principal) ==

== ENCOUNTER → 2018-07-31 | Outpatient (CLI) | payer OTHER ==
--- NOTE | 2018-08-01 08:57 | RAD ---
EXAM DESCRIPTION: Cervical Spine,3 Views CLINICAL HISTORY: CERVICALGIA COMPARISON: None Available. TECHNIQUE: AP/lateral/ open-mouth odontoid FINDINGS: Anatomic alignment of cervical vertebrae is seen on lateral view with visualization of C1-C7. Advanced degenerative change at the atlantodens interval with sclerosis and narrowing. Prominent anterior spurring at C2-3, C3-4, C4-5 and especially C5-6 with large anterior bridging osteophyte suggesting DISH. This may be a cause of dysphagia. Correlate with clinical symptoms. No fracture or subluxation. No prevertebral soft tissue swelling. Normal craniocervical alignment. There is preservation of the spinal laminar line. No spinous process avulsion. Odontoid base appears intact. Normal alignment of the lateral margins of C1 and C2. AP view shows normal spinous process alignment with normal alignment of the lateral masses. Lung apices are clear. Advanced degenerative changes of the mid and lower cervical facet joints. IMPRESSION: Degenerative changes as described. Negative for fracture or posttraumatic subluxation. Electronically signed by: Anthony Cedillo MD 08/01/2018 8:54 AM CDT
== END ==
LOC: LAB.O 12:40
PROVIDERS: ATTEND Nurse Practitioner Family
DX: M54.2 Cervicalgia (principal); E11.9 Type 2 diabetes mellitus without complications

== ENCOUNTER → 2018-12-19 | Outpatient (CLI) | payer OTHER ==
--- NOTE | 2018-12-20 09:30 | NM ---
EXAM DESCRIPTION: Bone Scan, Whole Body: Nuclear Medicine CLINICAL HISTORY: 78 years Female DEGENERATIVE JOINT DISEASE INVOLVING MULTI JOINTS COMPARISON: Cervical spine radiographs 07/31/2018. TECHNIQUE: Patient injected with 26.1 mCi of technetium 99M MDP IV. Delayed gamma camera images from various planes were obtained 3 hr after injection. FINDINGS: Photopenic hardware visible in the right knee. Activity in the femoral condyles, patella, and tibial plateaus abutting the hardware but not specific for infection or loosening. Activity in the bilateral ankles, bilateral wrists, bilateral shoulders, bilateral sternoclavicular joints most likely related to arthrosis/arthritis. Activity in the mid cervical spine to the right of midline consistent with facet arthrosis seen at C2-3 C3-4 and C4-5 levels on prior cervical spine radiographs. No compression fractures. There is also minimal radiotracer uptake at L4-L5 levels of the lumbar spine. Mild levoscoliosis. Focal activity in the upper thoracic spine is most likely due to spondylosis or facet arthrosis. No abnormal breath also activity in the long bones or flat bones. Normal soft tissue activity in the kidneys, urinary bladder, and sinuses. IMPRESSION: Radionuclide bone scan showing multiple joint involvement with arthrosis/arthritis including bilateral ankles, left knee, bilateral wrists, bilateral shoulders. Also cervical spine and upper thoracic spine and lower lumbar spine. Nonspecific activity around right knee arthroplasty. No abnormal activity in the long bones or flat bones or skull. Electronically signed by: Francisco Javier Do MD 12/20/2018 9:28 AM CDT
== END ==
LOC: NM 08:00
PROVIDERS: ATTEND Nurse Practitioner Family
DX: M15.9 Polyosteoarthritis, unspecified (principal); Z96.651 Presence of right artificial knee joint

== ENCOUNTER 2018-12-22 16:12 | Emergency (ER) | payer OTHER ==
[2018-12-22] MEDS ORDERED: HYDROcodone 7.5MG/APAP 325MG 1 EA TAB PO ONE (16:34)
[2018-12-22] MEDS ORDERED: ALUM & MAG HYDROX-SIMETHICONE 30 ML, LIDOCAINE VISCOUS 2% 15 ML PO ONE ×2 (16:40)
[2018-12-22] MEDS ORDERED: LIDOCAINE HCL 2% (MOUTH-THROAT) 15 ML UD ONE (17:08)
[2018-12-22] MEDS ORDERED: ALUM & MAG HYDROX-SIMETHICONE 30 ML UD ONE (17:08)
[2018-12-22] MEDS: ASPIRIN TABLET 325 MG TAB PO ONE ×2 (17:13→17:22)
[2018-12-22] MEDS ORDERED: POTASSIUM CHLORIDE ELIXIR 20 MEQ/15 ML UD PO ONE (17:14)
--- NOTE | 2018-12-22 17:34 | RAD ---
EXAM:Chest,2 Views CLINICAL INDICATION: Atypical chest pain COMPARISON: 07/21/2017 FINDINGS:Two views of the chest were obtained. The heart size is normal. The pulmonary vascularity is unremarkable. The lungs are clear. There is no consolidation, infiltrate, pleural effusion, or pneumothorax. IMPRESSION: No evidence of active pulmonary disease. Electronically signed by: Adrien Self MD 12/22/2018 5:33 PM CDT
[2018-12-22] MEDS ORDERED: predniSONE 20 MG TAB PO ONE (17:53)
[2018-12-22] MEDS ORDERED: ONDANSETRON ODT 8 MG TAB SL ONE (17:57)
--- NOTE | 2018-12-22 18:51 | ED.PDOC ---
History of Present Illness - General Chief Complaint: Cardiovascular Problem Stated Complaint: chest pain, nausea Time Seen by Provider: 12/22/18 16:21 Source: family Exam Limitations: no limitations - History of Present Illness Initial Comments: the patient is a 78-year-old female presenting to the emergency room secondary to intermittent very brief spasms of chest pain just at the right edge of the sternum. This has been happening since this morning. It is worse with twisting or turning or taking a deep breath. It is not worse with walking or aerobic activity. No shortness of breath. No productive cough. No pressure. No syncope or near syncope. No palpitations.pain is at least mostly reproducible with palpation. Timing/Duration: other - 10 hours Severity: moderate Improving Factors: nothing Worsening Factors: movement Associated Symptoms: denies symptoms Allergies/Adverse Reactions: Allergies NO KNOWN ALLERGY Allergy (Verified 07/21/17 16:40) Home Medications: Ambulatory Orders Donepezil HCl [Aricept] 10 mg PO DAILY 12/12/15 Lisinopril 10 mg PO BEDTIME 12/12/15 Metoprolol Tartrate 25 mg PO DAILY 12/12/15 Pravastatin Sodium [Pravachol] 20 mg PO BEDTIME 12/12/15 metFORMIN HCL [Glucophage] 500 mg PO BID 12/12/15 Hydrochlorothiazide 25 mg PO DAILY 07/21/17 Metoprolol Tartrate 50 mg PO BEDTIME 07/21/17 ALPRAZolam [Xanax] 0.25 mg PO Q6H PRN #30 tab 07/23/17 Albuterol Inhaler [Ventolin Hfa Inhaler] 2 puff INH BID inh 07/23/17 Citalopram Hydrobromide [Celexa] 10 mg PO DAILY #30 tab 07/23/17 Acetaminophen W/ Codeine [Tylenol W/ CODEINE #3] 1 ea PO Q6HRS PRN #14 05/01/18 Baclofen 20 mg PO BID #14 tab 05/01/18 Insulin Detemir [Levemir Pen] 18 units SUBCU BEDTIME 05/01/18 Nitrofurantoin Monohydrate Mac [Macrobid] 100 mg PO BID 5 Days #10 capsule 05/01/18 Potassium Chloride [Micro-K] 10 meq PO DAILY 05/01/18 Tramadol HCl 50 mg PO Q8HR PRN #10 tab 12/22/18 predniSONE [Prednisone] 20 mg PO DAILY #3 tab 12/22/18 Review of Systems - Review of Systems Constitutional: States: no symptoms reported EENTM: States: no symptoms reported Respiratory: States: no symptoms reported Cardiology: States: chest pain Gastrointestinal/Abdominal: States: no symptoms reported Genitourinary: States: no symptoms reported Musculoskeletal: States: no symptoms reported Skin: States: no symptoms reported Neurological: States: no symptoms reported All other Systems: No Change from Baseline Past Medical History (General) - Patient Medical History Hx Seizures: No Hx Stroke: No Hx Dementia: Yes Hx Asthma: No Hx of COPD: Yes Hx Congestive Heart Failure: Yes Hx Pacemaker: No Hx Hypertension: Yes Hx Diabetes: Yes Hx Cancer: Yes - rt breast w/ biopsy Hx MRSA: No - Vaccination History Hx Influenza Vaccination: Yes Hx Pneumococcal Vaccination: Yes - 2015 - Social History Hx Tobacco Use: No Hx Chewing Tobacco Use: Yes Hx Alcohol Use: No Hx Substance Use: No Hx Physical Abuse: No Hx Emotional Abuse: No Family Medical History - Family History Father Living Status: Age at (years of age): 77 Cause of : DC Hx Family Asthma: Yes Hx Family Congestive Heart Failure: No Hx Family Hypertension: No Hx Family Stroke: No - mom Hx Cardiac Disease: Yes Hx Family Diabetes: Yes - daughter Hx Family Cancer: Yes - breast -mom();prostate-brother;dad-kidney Mother Living Status: Age at (years of age): 89 Hx Family Asthma: No Hx Family Congestive Heart Failure: Yes Hx Family Hypertension: Yes Hx Family Stroke: Yes Hx Cardiac Disease: Yes Hx Family Diabetes: No Hx Family Cancer: Yes Physical Exam - Physical Exam General Appearance: Alert, Anxious, No apparent distress Eye Exam: bilateral normal Ears, Nose, Throat: hearing grossly normal, normal ENT inspection Neck: full range of motion, supple Respiratory: lungs clear, normal breath sounds, no respiratory distress, no accessory muscle use, other - see history of present illness Cardiovascular/Chest: normal peripheral pulses, regular rate, rhythm, no edema Peripheral Pulses: radial,right: 2+, radial,left: 2+ Gastrointestinal/Abdominal: non tender, soft Rectal Exam: deferred Back Exam: normal inspection Extremity: normal range of motion, non-tender, normal inspection, no pedal edema, normal capillary refill Neurologic: ornament stitcher II-XII nml as tested, alert, normal mood/affect, oriented x 3 Progress - Progress Progress: 12/22/18 18:52 the patient's a 78-year-old female presenting with atypical chest pain is most consistent with costochondritis. The patient is going be placed on prednisone 20 mg a day for the next 3 days. She does need to watch her blood sugars. She does need to do stretching. Topical heat may also prove beneficial. Follow up with primary care doctor later this coming week. ER warnings were given for any significant worsening. - Results/Orders Results/Orders: Laboratory Tests 12/22/18 12/22/18 12/22/18 17:01 17:01 17:01 WBC 11.1 H RBC 4.35 Hgb 13.1 Hct 37.9 MCV 87.3 MCH 30.2 MCHC 34.6 RDW 13.0 Plt Count 357 MPV 6.6 L Absolute Neuts (auto) 7.60 H Absolute Lymphs (auto) 2.50 Absolute Monos (auto) 0.70 Absolute Eos (auto) 0.10 Absolute Basos (auto) 0.10 Neutrophils % 68.9 Lymphocytes % 22.6 Monocytes % 6.7 Eosinophils % 0.8 L Basophils % 1.0 PT 10.1 INR 1.01 PTT (SP) 24.4 Sodium 135 Potassium 3.3 L Chloride 100 L Carbon Dioxide 22 Anion Gap 16.3 BUN 19 H Creatinine 0.96 BUN/Creatinine Ratio 19.8 Random Glucose 149 H Serum Osmolality 275.2 Calcium 9.5 Magnesium 1.7 L Total Bilirubin 0.5 AST 17 ALT 10 Alkaline Phosphatase 48 Creatine Kinase 42 CK-MB (CK-2) 1.4 CK-MB (CK-2) % Not Reportable Troponin I < 0.02 B-Natriuretic Peptide 23.5 Serum Total Protein 7.1 Albumin 3.9 Globulin 3.2 Albumin/Globulin Ratio 1.2 Amylase 50 Lipase 37 Urine Color Urine Appearance Urine pH Ur Specific [place] Urine Protein Urine Glucose (UA) Urine Ketones Urine Blood Urine Nitrite Urine Bilirubin Urine Urobilinogen Ur Leukocyte Esterase Urine RBC Urine WBC Ur Epithelial Cells Urine Bacteria Urine Mucus 12/22/18 17:31 WBC RBC Hgb Hct MCV MCH MCHC RDW Plt Count MPV Absolute Neuts (auto) Absolute Lymphs (auto) Absolute Monos (auto) Absolute Eos (auto) Absolute Basos (auto) Neutrophils % Lymphocytes % Monocytes % Eosinophils % Basophils % PT INR PTT (SP) Sodium Potassium Chloride Carbon Dioxide Anion Gap BUN Creatinine BUN/Creatinine Ratio Random Glucose Serum Osmolality Calcium Magnesium Total Bilirubin AST ALT Alkaline Phosphatase Creatine Kinase CK-MB (CK-2) CK-MB (CK-2) % Troponin I B-Natriuretic Peptide Serum Total Protein Albumin Globulin Albumin/Globulin Ratio Amylase Lipase Urine Color Yellow Urine Appearance Clear Urine pH 5.5 Ur Specific [place] 1.010 Urine Protein Negative Urine Glucose (UA) Negative Urine Ketones Negative Urine Blood Negative Urine Nitrite Negative Urine Bilirubin Negative Urine Urobilinogen 0.2 Ur Leukocyte Esterase Small H Urine RBC 1-3 Urine WBC 5-10 H Ur Epithelial Cells 1-3 Urine Bacteria Rare Urine Mucus Trace chest x-ray appears benign. EKG shows normal sinus rhythm at 79 bpm. Normal axis. Nonspecific ST segment changes. No definitive changes for ischemia. Normal R-wave progression. Normal QT interval. Departure - Departure Clinical Impression: Costochondritis, acute Disposition: Discharge to Home or Self Care Condition: Fair Departure Forms: ED Discharge - Pt. Copy, Patient Portal Self Enrollment Instructions: Costochondritis (DC) Diet: diabetic diet Activity: increase activity as tolerated Referrals: Bekah Sears NP [Primary Care Provider] - 1-2 Weeks Prescriptions: Tramadol HCl 50 mg PO Q8HR PRN #10 tab PRN Reason: Moderate Pain predniSONE [Prednisone] 20 mg PO DAILY #3 tab Home Medications: Ambulatory Orders Donepezil HCl [Aricept] 10 mg PO DAILY 12/12/15 Lisinopril 10 mg PO BEDTIME 12/12/15 Metoprolol Tartrate 25 mg PO DAILY 12/12/15 Pravastatin Sodium [Pravachol] 20 mg PO BEDTIME 12/12/15 metFORMIN HCL [Glucophage] 500 mg PO BID 12/12/15 Hydrochlorothiazide 25 mg PO DAILY 07/21/17 Metoprolol Tartrate 50 mg PO BEDTIME 07/21/17 ALPRAZolam [Xanax] 0.25 mg PO Q6H PRN #30 tab 07/23/17 Albuterol Inhaler [Ventolin Hfa Inhaler] 2 puff INH BID inh 07/23/17 Citalopram Hydrobromide [Celexa] 10 mg PO DAILY #30 tab 07/23/17 Acetaminophen W/ Codeine [Tylenol W/ CODEINE #3] 1 ea PO Q6HRS PRN #14 05/01/18 Baclofen 20 mg PO BID #14 tab 05/01/18 Insulin Detemir [Levemir Pen] 18 units SUBCU BEDTIME 05/01/18 Nitrofurantoin Monohydrate Mac [Macrobid] 100 mg PO BID 5 Days #10 capsule 05/01/18 Potassium Chloride [Micro-K] 10 meq PO DAILY 05/01/18 Tramadol HCl 50 mg PO Q8HR PRN #10 tab 12/22/18 predniSONE [Prednisone] 20 mg PO DAILY #3 tab 12/22/18 Additional Instructions: the patient's a 78-year-old female presenting with atypical chest pain is most consistent with costochondritis. The patient is going be placed on prednisone 20 mg a day for the next 3 days. She does need to watch her blood sugars. She does need to do stretching. Topical heat may also prove beneficial. Follow up with primary care doctor later this coming week. ER warnings were given for any significant worsening.
[2018-12-22] MEDS ORDERED: SODIUM CHLORIDE 0.9% 1000ML 1,000 ML IVS ONE (18:54)
[2018-12-22 19:53] VITALS: BP 130/65; TEMP 97; O2SAT 95
== END 2018-12-22 19:05 | disposition home or self-care (01) ==
LOC: ER 16:12
DX: M94.0 Chondrocostal junction syndrome [Tietze] (principal); F03.90 Unspecified dementia, unspecified severity, without behavioral disturbance, psychotic disturbance, mood disturbance, and anxiety; J44.9 Chronic obstructive pulmonary disease, unspecified; I50.9 Heart failure, unspecified; I11.0 Hypertensive heart disease with heart failure; E11.9 Type 2 diabetes mellitus without complications; Z85.3 Personal history of malignant neoplasm of breast; Z87.891 Personal history of nicotine dependence; Z79.4 Long term (current) use of insulin; Z79.899 Other long term (current) drug therapy
CPT/HCPCS: 36415; 71046; 80053; 81001; 82150; 82550; 82553; 83690; 83735; 83880; 84484; 85025; 85610; 85730; 87086; 93005; J7030; J7512

== ENCOUNTER 2018-12-24 14:38 | Emergency (ER) | payer MEDICARE, OTHER ==
[2018-12-24] MEDS ORDERED: INSULIN LISPRO 100 UNITS/ML PEN SUBCU ONE (15:57)
--- NOTE | 2018-12-24 16:13 | ED.PDOC ---
History of Present Illness - General Chief Complaint: General Stated Complaint: high blood sugar Time Seen by Provider: 12/24/18 15:26 Source: patient Exam Limitations: no limitations - History of Present Illness Initial Comments: the patient is a 78-year-old female presenting essentially in a panic attack over her blood sugars. She reports that she checked her blood sugar this morning it was in the mid 300s. She Checked it again midday and it was still around 250. She shows up tearful and crying. Blood pressures are initially elevated however when patient relaxes they do return to normal. She was seen a couple of days ago for what appeared to be costochondritis. She was written for a short course of oral prednisone. The costochondritis does seem to be i mproving. Her blood sugars however have increased correspondingly. No altered mental status. She does have multiple worries at home and does obviously have some chronic anxiety and depression issues. Repeat blood sugar here is 217.the patient was also concerned about her blood pressure that she had been checking at home repeatedly. Not surprisingly her blood pressures at home were elevated given her anxiety. Timing/Duration: 4-6 hours Severity: mild Improving Factors: nothing Worsening Factors: nothing Associated Symptoms: denies symptoms Allergies/Adverse Reactions: Allergies Meloxicam Adverse Reaction (Verified 12/24/18 15:07) Other Home Medications: Ambulatory Orders Donepezil HCl [Aricept] 10 mg PO DAILY 12/12/15 Lisinopril 10 mg PO BEDTIME 12/12/15 Metoprolol Tartrate 25 mg PO DAILY 12/12/15 Pravastatin Sodium [Pravachol] 20 mg PO BEDTIME 12/12/15 metFORMIN HCL [Glucophage] 500 mg PO BID 12/12/15 Hydrochlorothiazide 25 mg PO DAILY 07/21/17 Metoprolol Tartrate 50 mg PO BEDTIME 07/21/17 ALPRAZolam [Xanax] 0.25 mg PO Q6H PRN #30 tab 07/23/17 Albuterol Inhaler [Ventolin Hfa Inhaler] 2 puff INH BID inh 07/23/17 Citalopram Hydrobromide [Celexa] 10 mg PO DAILY #30 tab 07/23/17 Acetaminophen W/ Codeine [Tylenol W/ CODEINE #3] 1 ea PO Q6HRS PRN #14 05/01/18 Baclofen 20 mg PO BID #14 tab 05/01/18 Insulin Detemir [Levemir Pen] 18 units SUBCU BEDTIME 05/01/18 Nitrofurantoin Monohydrate Mac [Macrobid] 100 mg PO BID 5 Days #10 capsule 05/01/18 Potassium Chloride [Micro-K] 10 meq PO DAILY 05/01/18 Tramadol HCl 50 mg PO Q8HR PRN #10 tab 12/22/18 predniSONE [Prednisone] 20 mg PO DAILY #3 tab 12/22/18 Review of Systems - Review of Systems Constitutional: States: no symptoms reported EENTM: States: no symptoms reported Respiratory: States: no symptoms reported Cardiology: States: no symptoms reported Gastrointestinal/Abdominal: States: no symptoms reported Genitourinary: States: no symptoms reported Musculoskeletal: States: no symptoms reported Skin: States: no symptoms reported Neurological: States: anxiety Endocrine: States: no symptoms reported All other Systems: No Change from Baseline Past Medical History (General) - Patient Medical History Hx Seizures: No Hx Stroke: No Hx Dementia: Yes Hx Asthma: No Hx of COPD: Yes Hx Congestive Heart Failure: Yes Hx Pacemaker: No Hx Hypertension: Yes Hx Diabetes: Yes Hx Cancer: Yes - rt breast w/ biopsy Hx MRSA: No Surgical History: cholecystectomy, other - Vaccination History Hx Influenza Vaccination: Yes Hx Pneumococcal Vaccination: Yes - 2014 - Social History Hx Tobacco Use: No Hx Chewing Tobacco Use: Yes Hx Alcohol Use: No Hx Substance Use: No Hx Physical Abuse: No Hx Emotional Abuse: No Family Medical History - Family History Father Living Status: Age at (years of age): 77 Cause of : [place] Hx Family Asthma: Yes Hx Family Congestive Heart Failure: No Hx Family Hypertension: No Hx Family Stroke: No - mom Hx Cardiac Disease: Yes Hx Family Diabetes: Yes - daughter Hx Family Cancer: Yes - breast -mom();prostate-brother;dad-kidney Mother Living Status: Age at (years of age): 89 Hx Family Asthma: No Hx Family Congestive Heart Failure: Yes Hx Family Hypertension: Yes Hx Family Stroke: Yes Hx Cardiac Disease: Yes Hx Family Diabetes: No Hx Family Cancer: Yes Physical Exam - Physical Exam General Appearance: Alert, Anxious, Other - the patient is crying Eye Exam: bilateral normal Ears, Nose, Throat: normal ENT inspection Neck: full range of motion, supple Respiratory: lungs clear, normal breath sounds, no respiratory distress, no accessory muscle use, other - she still does have some very mild palpable costochondritis. Cardiovascular/Chest: normal peripheral pulses, no edema, other - regular rate Peripheral Pulses: radial,right: 2+, radial,left: 2+ Gastrointestinal/Abdominal: non tender, soft Rectal Exam: deferred Back Exam: no CVA tenderness, no vertebral tenderness Extremity: non-tender, normal inspection, no pedal edema, normal capillary refill Neurologic: interactive designer II-XII nml as tested, alert, oriented x 3, other - anxious and crying Skin Exam: normal color Comments: Vital Signs - 24 hr 12/24/18 12/24/18 14:45 15:42 Temperature 99.3 F Pulse Rate [ 77 75 pulse ox] Respiratory 20 20 Rate Blood Pressure 120/93 147/85 [Right Arm] O2 Sat by Pulse 99 96 Oximetry Progress - Progress Progress: 12/24/18 16:14 the patient is a 78-year-old female presenting secondary to concern for elevated blood sugar and elevated blood pressure. Blood pressure appears to been elevated due to anxiety. Once the patient relaxed, her blood pressures returned to normal. Blood sugars are actually trending down. While they started in the mid 300s today, they have since descended down to the low 200s. She was given 3 units of insulin here. She needs to recheck her blood sugars this evening before she doses her evening insulin. On her morning glucose checks, I would encourage her to take 5 units of her long-acting insulin if her blood sugar check is above 200. She does need to follow back up with her primary care doctor. The patient does have significant anxiety. treatment with her primary care doctor may prove beneficial for this. ER warnings were given. Departure - Departure Clinical Impression: Anxiety Hyperglycemia due to type 2 diabetes mellitus Qualifiers: Diabetes mellitus fci insulin use: with equipment operator intermodal yard use Qualified Code(s): E11.65 - Type 2 diabetes mellitus with hyperglycemia; Z79.4 - equipment operator intermodal yard (current) use of insulin Disposition: Discharge to Home or Self Care Condition: Fair Departure Forms: ED Discharge - Pt. Copy, Patient Portal Self Enrollment Instructions: Generalized Anxiety Disorder Diet: diabetic diet Activity: increase activity as tolerated Referrals: Bekah Sears NP [Primary Care Provider] - 1-2 Weeks Home Medications: Ambulatory Orders Donepezil HCl [Aricept] 10 mg PO DAILY 12/12/15 Lisinopril 10 mg PO BEDTIME 12/12/15 Metoprolol Tartrate 25 mg PO DAILY 12/12/15 Pravastatin Sodium [Pravachol] 20 mg PO BEDTIME 12/12/15 metFORMIN HCL [Glucophage] 500 mg PO BID 12/12/15 Hydrochlorothiazide 25 mg PO DAILY 07/21/17 Metoprolol Tartrate 50 mg PO BEDTIME 07/21/17 ALPRAZolam [Xanax] 0.25 mg PO Q6H PRN #30 tab 07/23/17 Albuterol Inhaler [Ventolin Hfa Inhaler] 2 puff INH BID inh 07/23/17 Citalopram Hydrobromide [Celexa] 10 mg PO DAILY #30 tab 07/23/17 Acetaminophen W/ Codeine [Tylenol W/ CODEINE #3] 1 ea PO Q6HRS PRN #14 05/01/18 Baclofen 20 mg PO BID #14 tab 05/01/18 Insulin Detemir [Levemir Pen] 18 units SUBCU BEDTIME 05/01/18 Nitrofurantoin Monohydrate Mac [Macrobid] 100 mg PO BID 5 Days #10 capsule 05/01/18 Potassium Chloride [Micro-K] 10 meq PO DAILY 05/01/18 Tramadol HCl 50 mg PO Q8HR PRN #10 tab 12/22/18 predniSONE [Prednisone] 20 mg PO DAILY #3 tab 12/22/18 Additional Instructions: the patient is a 78-year-old female presenting secondary to concern for elevated blood sugar and elevated blood pressure. Blood pressure appears to been elevated due to anxiety. Once the patient relaxed, her blood pressures returned to normal. Blood sugars are actually trending down. While they started in the mid 300s today, they have since descended down to the low 200s. She was given 3 units of insulin here. She needs to recheck her blood sugars this evening before she doses her evening insulin. On her morning glucose checks, I would encourage her to take 5 units of her long-acting insulin if her blood sugar check is above 200. She does need to follow back up with her primary care doctor. The patient does have significant anxiety. treatment with her primary care doctor may prove beneficial for this. ER warnings were given.
[2018-12-24 16:53] VITALS: BP 172/62; TEMP 98.6; O2SAT 99
== END 2018-12-24 16:40 | disposition home or self-care (01) ==
LOC: ER 14:38
DX: E11.65 Type 2 diabetes mellitus with hyperglycemia (principal); F41.9 Anxiety disorder, unspecified; F03.90 Unspecified dementia, unspecified severity, without behavioral disturbance, psychotic disturbance, mood disturbance, and anxiety; J44.9 Chronic obstructive pulmonary disease, unspecified; I50.9 Heart failure, unspecified; I11.0 Hypertensive heart disease with heart failure; Z85.3 Personal history of malignant neoplasm of breast; Z79.4 Long term (current) use of insulin; Z79.899 Other long term (current) drug therapy; Z87.891 Personal history of nicotine dependence; Z88.8 Allergy status to other drugs, medicaments and biological substances
CPT/HCPCS: 36416; 82948; 96372; 99284; J1815

== ENCOUNTER → 2019-05-16 | Outpatient (CLI) | payer MEDICARE | LOC: LAB.O 10:24 | PROVIDERS: ATTEND Family Medicine | DX: E11.9 Type 2 diabetes mellitus without complications (principal) ==

== ENCOUNTER → 2019-08-28 | Outpatient (CLI) | payer MEDICARE | LOC: YCFC.O 08:52 | PROVIDERS: ATTEND Family Medicine | DX: E11.9 Type 2 diabetes mellitus without complications (principal); I10 Essential (primary) hypertension; E78.5 Hyperlipidemia, unspecified; M06.9 Rheumatoid arthritis, unspecified ==

== ENCOUNTER → 2019-10-30 | Outpatient (CLI) | payer MEDICARE ==
--- NOTE | 2019-10-30 16:29 | US ---
EXAM DESCRIPTION: Carotid Duplex: ULTRASOUND. CLINICAL HISTORY: 79 years Female DYSARTHRIA COMPARISON: Soft tissue neck ultrasound July 2017, cervical spine radiographs July 2018, and carotid ultrasound with Doppler March 2012. TECHNIQUE: Transcutaneous scanning utilizing hansen-scale and Doppler modes to evaluate the bilateral carotid systems and vertebral arteries. Percentage of diameter of stenosis or no stenosis recorded will be based upon NASCET criteria. FINDINGS: Peak systolic/end diastolic (CM-Sec) CCA Right 118/11 Left 139/11. ICA Right proximal 88/12, distal 66/15. Left proximal 108/12, Distal 64/15. Vertebral Right 76/3 Left 60/12. ECA (PS Only) Right 122 left 130. ICA/CCA peak systolic ratio: Right 0.7 Left 0.8 ICA/CCA end diastolic ratio: Right 1.1 Left 1.0 Vertebral arteries: antegrade flow. Comments: Atherosclerotic calcifications in the bilateral bifurcations in the proximal right ICA. Less than 40% area and diameter stenosis on the right. Less than 15% area diameter stenosis left CCA bulb. IMPRESSION: 1. Doppler evaluation of the bilateral carotid systems and vertebral arteries shows no hemodynamically significant stenoses (less than 70%). 2. No significant amount of plaque in the carotid arteries bilaterally. Bilateral vertebral arteries showed antegrade-cephalad flow. Electronically signed by: Francisco Javier Do MD 10/30/2019 4:27 PM CDT
== END ==
LOC: US 09:00
PROVIDERS: ATTEND Family Medicine
DX: R47.1 Dysarthria and anarthria (principal)

== ENCOUNTER → 2019-11-27 | Outpatient (CLI) | payer MEDICARE | LOC: YCFC.O 10:06 | PROVIDERS: ATTEND Family Medicine | DX: E11.9 Type 2 diabetes mellitus without complications (principal) ==

== ENCOUNTER → 2019-12-16 | Outpatient (CLI) | payer MEDICARE ==
--- NOTE | 2019-12-16 16:50 | MRI ---
EXAM DESCRIPTION: Brain w/o Contrast: MRI. CLINICAL HISTORY: FREQUENT HEADACHE COMPARISON: CT scan of the head March 2012. TECHNIQUE: Multiplanar, high-field MRI unit, multiple diffusion sequences, multiple conventional sequences without contrast. FINDINGS: Bilateral small foci of hyperintense FLAIR and T2-weighted signal, sporadically seen in the periventricular white matter and sub-cortical white matter of the frontal and parietal lobes. More in the left hemisphere. No definite temporal or occipital lobe lesions.. No hemorrhage, no cerebral edema, no midline shift.. Multiple bilateral perivascular spaces in the subcortical white matter bilaterally seen on the T2 images. Normal signal in the bilateral basal ganglia. Normal signal in the brainstem and cerebellar hemispheres. Concordance of the diffusion and non-diffusion sequences with no diffusion restriction. Cortical sulci, ventricles, and other CSF spaces, and the subdural spaces are normally configured for patients age. No effacement or displacement. No midline shift. No extra-axial hemorrhage. Normal flow signal void in the major vessels of the [place], and the venous sinuses. Left vertebral artery is dominant. IACs are symmetric bilaterally. Fluid/edema in the right mastoid air cells with normal signal in the left mastoid air cells. No mass effect in the bilateral cerebellopontine angles. Pituitary gland occupies less than half of the sella. Base of the cerebellar tonsils is above the foramen magnum. Bilateral lisette bullosa in the middle turbinates, larger on the left mucoperiosteal thickening in the ethmoid air cells.. The bony calvarium is intact. IMPRESSION: 1. Scattered bilateral foci of abnormal white matter signal more predominant in the left frontal lobe. These are consistent with age-related changes and cerebral microvascular disease. No intra-axial or extra-axial hemorrhage, no mass effect, no cerebral edema. 2. Normal noncontrast MRI diffusion study with no evidence of significant ischemia, subacute or acute infarction. 3. Probably chronic right mastoiditis. Minimal paranasal sinusitis with bilateral lisette bullosa. Electronically signed by: Francisco Javier Do MD 12/16/2019 4:49 PM CDT
== END ==
LOC: MRI 09:53
PROVIDERS: ATTEND Family Medicine
DX: R90.82 White matter disease, unspecified (principal); H70.91 Unspecified mastoiditis, right ear; J32.9 Chronic sinusitis, unspecified

== ENCOUNTER → 2020-03-05 | Outpatient (CLI) | payer MEDICARE | LOC: LAB 08:24 | PROVIDERS: ATTEND Family Medicine | DX: E78.5 Hyperlipidemia, unspecified (principal); E11.9 Type 2 diabetes mellitus without complications; I10 Essential (primary) hypertension ==

== ENCOUNTER 2020-03-21 18:31 | Emergency (ER) | payer MEDICARE ==
[2020-03-21] MEDS ORDERED: NITROGLYCERIN 0.4 MG 25 EA TAB SL ONE (18:35)
[2020-03-21] MEDS: ASPIRIN TABLET 325 MG TAB PO ONE ×2 (18:50→18:58)
--- NOTE | 2020-03-21 19:04 | RAD ---
EXAM DESCRIPTION: Chest,1 View 03/21/2020 7:01 PM [employer]PA[employer] CLINICAL HISTORY: 79 years, Female, chest pain COMPARISON: 12/22/2018 FINDINGS: Single view of the chest was obtained portable. Prior films were compared. External EKG leads within the [id number] limits diagnosis. The cardiomediastinal silhouette demonstrate to be unremarkable. The heart is not enlarged. The thoracic aorta demonstrate minimal intimal cusp indication. There is surgical clips within the right axillary area suggesting most likely lymph node dissection. Costophrenic angles are sharp. No areas of consolidation or masses are seen. The rest of the soft tissue and bony structures demonstrate to be unremarkable. IMPRESSION: NO ACUTE CARDIOPULMONARY DISEASE SEEN. Electronically signed by: Jayce Herron MD 03/21/2020 7:02 PM [employer]
[2020-03-21] MEDS ORDERED: ACETAMINOPHEN 500 MG TAB PO ONE (20:15)
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
[2020-03-21 21:30] VITALS: TEMP 97.8
[2020-03-21 21:32] VITALS: BP 130/85; O2SAT 95
== END 2020-03-21 21:30 | disposition home or self-care (01) ==
LOC: ER 18:31
DX: R07.89 Other chest pain (principal); R06.02 Shortness of breath; R11.0 Nausea; E11.9 Type 2 diabetes mellitus without complications; I10 Essential (primary) hypertension; F03.90 Unspecified dementia, unspecified severity, without behavioral disturbance, psychotic disturbance, mood disturbance, and anxiety; K21.9 Gastro-esophageal reflux disease without esophagitis; V49.88XA Car occupant (driver) (passenger) injured in other specified transport accidents, initial encounter; Y92.410 Unspecified street and highway as the place of occurrence of the external cause; Z87.891 Personal history of nicotine dependence; Z79.899 Other long term (current) drug therapy; Z79.4 Long term (current) use of insulin; Z88.6 Allergy status to analgesic agent; Z88.8 Allergy status to other drugs, medicaments and biological substances

== ENCOUNTER → 2020-04-01 | Outpatient (CLI) | payer MEDICARE ==
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
== END ==
LOC: CT 12:30
PROVIDERS: ATTEND Family Medicine
DX: T14.90XA Injury, unspecified, initial encounter (principal); V89.2XXA Person injured in unspecified motor-vehicle accident, traffic, initial encounter; K76.89 Other specified diseases of liver; R91.8 Other nonspecific abnormal finding of lung field

== ENCOUNTER 2020-05-11 18:30 | Emergency (ER) | payer MEDICARE ==
--- NOTE | 2020-05-11 21:46 | RAD ---
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 FINDINGS: 2 x-ray views of the chest (PA and lateral) were obtained, prior films were compared. The cardiomediastinal silhouette demonstrate to be within normal limits. The heart is not enlarged. The thoracic aorta demonstrate very minimal intimal ossification. Costophrenic angles are sharp. No areas of consolidations or masses are identified. Surgical clips within the right axillary area and discrete size of the right breast shadow suggest the possibility of previous mastectomy and lymph node dissection. The rest of the soft tissue and bony structures are unremarkable. IMPRESSION: NO ACUTE CARDIOPULMONARY DISEASE IS SEEN. Electronically signed by: Jayce Herron MD 05/11/2020 9:45 PM [facility] S[facility]TER
--- NOTE | 2020-05-11 21:53 | CT ---
EXAM DESCRIPTION: Sinuses 05/11/2020 9:45 PM SIGNAL MANAGER CLINICAL HISTORY: 80 years, Female, SEVERE CHRONIC POST NASAL DRAINAGE COMPARISON: None. PROCEDURE: Multiple transaxial tomograms of the paranasal sinuses were performed utilizing 2.5 mm slice thickness at 2.5 mm interval reconstruction. In addition 2-D multiplanar reconstructions in the coronal and sagittal plane were performed and reviewed. An individualized dose optimization technique, Automated Exposure Control, was utilized for the performed procedure. FINDINGS: The sphenoid, ethmoid, frontal sinuses demonstrate to be within normal limits. No focal masses were identified. No polyps and/or mucus retention cysts were seen. There is no significant mucoperiosteal thickening within the maxillary sinuses. The osteomeatal complex demonstrate to be patent. Superior medial and inferior turbinates are grossly unremarkable. Nasopharynx and oropharynx demonstrate clear. No focal masses were demonstrated. The rest of the soft tissue and bony structures are grossly unremarkable. The visualized portions of the temporomandibular joint demonstrate to be within normal limits. The orbits, intraconal and extraconal elements demonstrate to be unremarkable. IMPRESSION: UNREMARKABLE CT PARANASAL SINUSES. NO SIGNIFICANT MUCOSAL THICKENING AND/OR EVIDENCE FOR SIGNIFICANT SINUSITIS. Electronically signed by: Jayce Herron MD 05/11/2020 9:51 PM SIGNAL MANAGER
--- NOTE | 2020-05-11 22:07 | ED.PDOC ---
History of Present Illness - General Chief Complaint: GI Problem Stated Complaint: sinus drainage/cough x's 2 yrs causing N/V x1 week Time Seen by Provider: 05/11/20 20:25 - History of Present Illness Comments: SEVERE POST NASAL DRIP, DRAINAGE, GAGGING ON DRAINAGE. VOMITING Timing/Duration: week - 2 Cough Quality/Degree: severe, sputum - PURULENT Worsening Factors: nothing Allergies/Adverse Reactions: Allergies Aspirin Allergy (Verified 03/21/20 19:00) Meloxicam Adverse Reaction (Verified 03/21/20 19:00) Other Home Medications: Ambulatory Orders Donepezil HCl [Aricept] 10 mg PO DAILY 12/12/15 Lisinopril 10 mg PO BEDTIME 12/12/15 Metoprolol Tartrate 25 mg PO DAILY 12/12/15 Pravastatin Sodium [Pravachol] 20 mg PO BEDTIME 12/12/15 metFORMIN HCL [Glucophage] 500 mg PO BID 12/12/15 Hydrochlorothiazide 25 mg PO DAILY 07/21/17 Metoprolol Tartrate 50 mg PO BEDTIME 07/21/17 ALPRAZolam [Xanax] 0.25 mg PO Q6H PRN #30 tab 07/23/17 Albuterol Inhaler [Ventolin Hfa Inhaler] 2 puff INH BID inh 07/23/17 Citalopram Hydrobromide [Celexa] 10 mg PO DAILY #30 tab 07/23/17 Acetaminophen W/ Codeine [Tylenol W/ CODEINE #3] 1 ea PO Q6HRS PRN #14 05/01/18 Baclofen 20 mg PO BID #14 tab 05/01/18 Insulin Detemir [Levemir Pen] 18 units SUBCU BEDTIME 05/01/18 Nitrofurantoin Monohydrate Mac [Macrobid] 100 mg PO BID 5 Days #10 capsule 05/01/18 Potassium Chloride [Micro-K] 10 meq PO DAILY 05/01/18 Tramadol HCl 50 mg PO Q8HR PRN #10 tab 12/22/18 predniSONE [Prednisone] 20 mg PO DAILY #3 tab 12/22/18 Fluticasone Prop 0.05% Nasal [Flonase Nasal [place]] 2 spray BNAS DAILY #1 spray 05/11/20 Review of Systems - Review of Systems Constitutional: States: no symptoms reported EENTM: States: see HPI Respiratory: States: no symptoms reported Cardiology: States: no symptoms reported Gastrointestinal/Abdominal: States: no symptoms reported Genitourinary: States: no symptoms reported Past Medical History (General) - Patient Medical History Hx Seizures: No Hx Stroke: No Hx Dementia: Yes - Alzheimers disease Hx Asthma: No Hx of COPD: No Hx Cardiac Disorders: No Hx Congestive Heart Failure: No Hx Pacemaker: No Hx Hypertension: Yes Hx Thyroid Disease: No Hx Diabetes: Yes Hx Gastroesophageal Reflux: Yes Hx Renal Disease: No Hx Cancer: No Hx of HIV: No Hx Hepatitis C: No Hx MRSA: No Surgical History: cholecystectomy - Vaccination History Hx Tetanus, Diphtheria Vaccination: No Hx Influenza Vaccination: Yes Hx Pneumococcal Vaccination: Yes - Social History Hx Tobacco Use: No Hx Chewing Tobacco Use: Yes Hx Alcohol Use: No Hx Substance Use: No Hx Substance Use Treatment: No Hx Depression: No Hx Physical Abuse: No Hx Emotional Abuse: No - Female History Patient : No Family Medical History - Family History Father Living Status: Age at (years of age): 77 Cause of : [place] Hx Family Asthma: Yes Hx Family Congestive Heart Failure: No Hx Family Hypertension: No Hx Family Stroke: No - mom Hx Cardiac Disease: Yes Hx Family Diabetes: Yes - daughter Hx Family Cancer: Yes - breast -mom();prostate-brother;dad-kidney Mother Living Status: Age at (years of age): 89 Hx Family Asthma: No Hx Family Congestive Heart Failure: Yes Hx Family Hypertension: Yes Hx Family Stroke: Yes Hx Cardiac Disease: Yes Hx Family Diabetes: No Hx Family Cancer: Yes Physical Exam - Physical Exam General Appearance: Alert, Well Developed, Well Groomed, Well Hydrated, Well Nourished ENT Exam: normal ENT inspection, hearing grossly normal, TMs normal, pharynx normal Neck: non-tender, full range of motion, supple, normal inspection Respiratory: chest non-tender, lungs clear, normal breath sounds, no respiratory distress, no accessory muscle use Cardiovascular/Chest: normal peripheral pulses, regular rate, rhythm, no JVD Gastrointestinal/Abdominal: normal bowel sounds, non tender, soft, no organomegaly Departure - Departure Clinical Impression: Allergic rhinitis Qualifiers: Allergic rhinitis trigger: unspecified Allergic rhinitis seasonality: unspecified Qualified Code(s): J30.9 - Allergic rhinitis, unspecified Time of Disposition: 22:06 Disposition: Discharge to Home or Self Care Condition: Poor Departure Forms: ED Discharge - Pt. Copy, Patient Portal Self Enrollment Instructions: Seasonal Allergies in Adults Referrals: Aquiles Sweeney MD [Primary Care Provider] - 1-2 Weeks Prescriptions: Fluticasone Prop 0.05% Nasal [Flonase Nasal [place]] 2 spray BNAS DAILY #1 spray Home Medications: Ambulatory Orders Donepezil HCl [Aricept] 10 mg PO DAILY 12/12/15 Lisinopril 10 mg PO BEDTIME 12/12/15 Metoprolol Tartrate 25 mg PO DAILY 12/12/15 Pravastatin Sodium [Pravachol] 20 mg PO BEDTIME 12/12/15 metFORMIN HCL [Glucophage] 500 mg PO BID 12/12/15 Hydrochlorothiazide 25 mg PO DAILY 07/21/17 Metoprolol Tartrate 50 mg PO BEDTIME 07/21/17 ALPRAZolam [Xanax] 0.25 mg PO Q6H PRN #30 tab 07/23/17 Albuterol Inhaler [Ventolin Hfa Inhaler] 2 puff INH BID inh 07/23/17 Citalopram Hydrobromide [Celexa] 10 mg PO DAILY #30 tab 07/23/17 Acetaminophen W/ Codeine [Tylenol W/ CODEINE #3] 1 ea PO Q6HRS PRN #14 05/01/18 Baclofen 20 mg PO BID #14 tab 05/01/18 Insulin Detemir [Levemir Pen] 18 units SUBCU BEDTIME 05/01/18 Nitrofurantoin Monohydrate Mac [Macrobid] 100 mg PO BID 5 Days #10 capsule 05/01/18 Potassium Chloride [Micro-K] 10 meq PO DAILY 05/01/18 Tramadol HCl 50 mg PO Q8HR PRN #10 tab 12/22/18 predniSONE [Prednisone] 20 mg PO DAILY #3 tab 12/22/18 Fluticasone Prop 0.05% Nasal [Flonase Nasal [place]] 2 spray BNAS DAILY #1 spray 05/11/20 Additional Instructions: RECOMMEND AFRIN NS 2 SPRAYS EACH NOSTRIL, WAIT 5 MINUTES AND REPEAT, DO THIS EVERY 12 HOURS FOR 4 DAYS THEN STOP. MUCINEX D (NOT DM) TWICE DAILY
[2020-05-11 22:11] VITALS: BP 155/66; O2SAT 95
[2020-05-11 22:13] VITALS: TEMP 97.5
[2020-05-11] MEDS: methylPREDNISolone ACETATE 80 MG/ML VIAL IM ONE (22:16)
[2020-05-11] MEDS: BENZONATATE PERLES 100 MG CAP PO ONE (22:42)
== END 2020-05-11 22:43 | disposition home or self-care (01) ==
LOC: ER 18:30
DX: J30.9 Allergic rhinitis, unspecified (principal); K21.9 Gastro-esophageal reflux disease without esophagitis; E11.9 Type 2 diabetes mellitus without complications; I10 Essential (primary) hypertension; G30.9 Alzheimer's disease, unspecified; Z20.822 Contact with and (suspected) exposure to COVID-19; Z79.899 Other long term (current) drug therapy; Z79.4 Long term (current) use of insulin; Z88.6 Allergy status to analgesic agent; Z88.8 Allergy status to other drugs, medicaments and biological substances

== ENCOUNTER → 2020-05-29 | Outpatient (CLI) | payer MEDICARE | LOC: YCFC.O 09:26 | PROVIDERS: ATTEND Family Medicine | DX: E11.9 Type 2 diabetes mellitus without complications (principal) ==